=== PATIENT | male | born 1990 | race Two or more races ===

== ENCOUNTER 2025-04-24 11:16 | Day surgery (SDC) | payer OTHER, SELFPAY ==
[2025-04-22 12:51] VITALS: BMI 26.4
[2025-04-24] MEDS ORDERED: Acetaminophen 325 MG TAB ONE (11:35)
[2025-04-24] MEDS ORDERED: Lidocaine 2% 6 ML (Jelly) SYR ONE (12:33)
[2025-04-24] MEDS ORDERED: Bupivacaine/Epinephrine 0.25% 30 ML VIAL ONE (12:34)
[2025-04-24] MEDS ORDERED: PROPOFOL 20 ML ONE ×2 (12:50→13:44)
[2025-04-24] MEDS ORDERED: Lidocaine 1% PF 5 ML VIAL ONE (12:50)
[2025-04-24] MEDS ORDERED: Ondansetron PF 4 MG/2 ML Vial ONE (12:50)
[2025-04-24] MEDS ORDERED: metroNIDAZOLE 500 MG (100 mL) BAG ONE (13:34)
[2025-04-24] MEDS ORDERED: Acetaminophen/Codeine 30-300mg Tablet PO PRN (16:03)
== END 2025-04-24 15:25 | disposition home or self-care (01) ==
LOC: CSHSDC 11:16
PROVIDERS: ATTEND Surgery
PROC: 0HBAXZZ Excision of Inguinal Skin, External Approach (ICD-10-PCS; principal; 2025-04-24)
DX: A63.0 Anogenital (venereal) warts (principal); Z21 Asymptomatic human immunodeficiency virus [HIV] infection status; Z79.899 Other long term (current) drug therapy
CPT/HCPCS: 88304; J1100; J2405; J2704; J3010